=== PATIENT | female | born 1955 | race Caucasian/White ===

== ENCOUNTER → 2017-06-24 | Outpatient (CLI) | payer OTHER ==
[2015-04-27 08:47] VITALS: BP 97/62
[~2017-06-24] MED LIST: CONTRAST GIVEN MC PRN; ESTR1PAT66 TD; HYDR-971 PO; IOHEXOL 240 MG/ML 50ML VIAL. ONE; IOHEXOL 300 MG/ML 100ML VIAL. IV ONE; IOHEXOL 300 MG/ML 50 ML VIAL. PO ONE; SENN1TAB70 PO
--- NOTE | 2017-06-24 17:02 | RAD ---
PQRS Compliance Statement: One or more of the following individualized dose reduction techniques were utilized for this examination: 1. Automated exposure control 2. Adjustment of the mA and/or kV according to patient size 3. Use of iterative reconstruction technique CT ABD PELV W/ORAL IV CONTRAST Clinical Indication: LOWER ABD PAIN, EVAL FOR DIVERTICULITIS, Comparison: None. Technique: Helical CT imaging of the abdomen and pelvis is performed after 75 cc Omnipaque 300 [id number] IV contrast. Oral contrast also given. Findings: There is minimal linear atelectasis or scarring in the lung bases. Cardiac size normal. Cholecystectomy. The liver, spleen, pancreas, adrenal glands, abdominal aorta caliber, and kidneys are normal. Stomach unremarkable. No dilated small bowel. There is anastomosis in the distal colon. Scattered stool throughout the colon. No colon wall thickening. Appendix not identified, no secondary signs of appendicitis. No abdominal adenopathy or free fluid. The urinary bladder is normal. Uterus surgically absent. No pelvic free fluid. Numerous phleboliths in the pelvis. Degenerative spondylosis of L4/L5. IMPRESSION: No acute abdominal or pelvic abnormality. Electronically signed by: Trent Cates MD (06/24/2017 4:58 PM) [id number]
== END | disposition home or self-care (01) ==
LOC: CT 14:59
PROVIDERS: ATTEND Nurse Practitioner
DX: K56.609 Unspecified intestinal obstruction, unspecified as to partial versus complete obstruction (principal)
CPT/HCPCS: 74177; Q9966; Q9967